=== PATIENT | female | born 1945 | race Caucasian/White ===

== ENCOUNTER 2024-07-19 09:51 | Day surgery (SDC) | payer MEDICARE, OTHER ==
[2024-07-15 15:20] LABS: BASOPHILS % (AUTO) 0.7 % (0-1); EOSINOPHILS # (AUTO) 0.1 X10'3 (0-0.9); EOSINOPHILS % (AUTO) 0.9 % (0-6); LYMPHOCYTES # (AUTO) 1.4 X10'3 (1.1-4.8); LYMPHOCYTES % (AUTO) 21.3 % (21-51); MEAN CORPUSCULAR HEMOGLOBIN 28.8 PG (27.0-31.0); MEAN CORPUSCULAR VOLUME 87.3 FL (78-98); MEAN PLATELET VOLUME 8.5 FL (7.4-10.4); MONOCYTES # (AUTO) 0.4 X10'3 (0-0.9); MONOCYTES % (AUTO) 5.6 % (2-12); NEUTROPHILS # (AUTO) 4.9 X10'3 (1.8-7.7); NEUTROPHILS % (AUTO) 71.5 % (42-75); PRE OP HEMOGLOBIN 11.2 g/dL (12.0-16.0); PRE OP PLATELET COUNT 281 X10'3 (140-440); PRE OP WHITE BLOOD COUNT 6.8 10'3 (4.8-10.8); RED CELL DISTRIBUTION WIDTH 16.3 % (11.5-14.5)
[2024-07-19] VITALS (8 sets, daily range): BP systolic 143–159; BP diastolic 60–71; PULSE 58–95; RESP 12–16; TEMP 99.1; O2SAT 94–95
[~2024-07-19] VITALS: Ht 167.6 cm; Wt 70.3 kg
[2024-07-19] MEDS: ceFAZolin 2gm in dextrose, iso 50 ML IV ONE (05:30)
[~2024-07-19 09:51] MED LIST: AMLO10TA PO; CLON0.1T2 PO; FLUO40CA PO; LOSA100T58 PO; OXYC1TAB17 PO; TRAZ-256 PO; WARF-113 PO
[2024-07-19] MEDS: famotidine 20mg tablet PO ONE (11:20)
[2024-07-19] MEDS: ringers solution, lacted 1,000 ML IV SCH (11:21)
[2024-07-19] MEDS ORDERED: LIDOcaine 2% (20mg/ml) 5ml vial ONE (12:02)
[2024-07-19] MEDS ORDERED: BUPIVAcaine/PF 2.5mg/ml (0.25%) 10ml vial ONE (12:03)
[2024-07-19] MEDS ORDERED: meperidine/PF 25mg/ml syringe IV PRN ×3 (12:10)
[2024-07-19] MEDS ORDERED: morphine 2 MG/ML inj. syringe IV PRN (12:10)
[2024-07-19] MEDS ORDERED: ringers solution, lacted 1,000 ML IV SCH (12:10)
[2024-07-19] MEDS ORDERED: proCHLORperazine 10 MG/2 ml inj IV PRN (12:10)
[2024-07-19] MEDS ORDERED: morphine 4 MG/ML inj SYRINge IV PRN (12:10)
[2024-07-19] MEDS ORDERED: ondansetron/PF 4mg/2ml inj IV PRN (12:10)
[2024-07-19] MEDS ORDERED: midazolam 1 mg/ML 2ml injection ONE (12:14)
[2024-07-19] MEDS ORDERED: fentaNYL/PF 50MCG/1 ML 2ML syringe ONE (12:14)
[2024-07-19] MEDS ORDERED: propofol inj 20 ML IV ONE (12:14)
== END 2024-07-19 14:06 | disposition home or self-care (01) ==
LOC: PAS 09:51
PROVIDERS: ATTEND Orthopaedic Surgery Hand Surgery
DX: M65.311 Trigger thumb, right thumb (principal); M65.321 Trigger finger, right index finger; M65.331 Trigger finger, right middle finger; M65.341 Trigger finger, right ring finger; M65.351 Trigger finger, right little finger; I10 Essential (primary) hypertension; F41.9 Anxiety disorder, unspecified; F32.A Depression, unspecified; M81.0 Age-related osteoporosis without current pathological fracture; M19.90 Unspecified osteoarthritis, unspecified site; Z79.01 Long term (current) use of anticoagulants; Z79.899 Other long term (current) drug therapy; Z90.5 Acquired absence of kidney; Z96.653 Presence of artificial knee joint, bilateral; Z88.5 Allergy status to narcotic agent; Z88.8 Allergy status to other drugs, medicaments and biological substances
CPT/HCPCS: 26055; 36415; 82948; 85025; A4215; A6449; J0690; J2003; J2250; J2704; J3010; J3490; J7030; J7120; Z7506; Z7512